=== PATIENT | male | born 1955 | race Caucasian/White ===

== ENCOUNTER 2019-07-22 14:50 | Emergency (ER) | payer MEDICARE, MEDICAID ==
[~2019-07-22] VITALS: Ht 167.6 cm; Wt 43.2 kg
[2019-07-22 15:12] VITALS: BP 151/71
== END 2019-07-22 16:44 | disposition home or self-care (01) ==
LOC: ER 14:51
DX: R62.50 Unspecified lack of expected normal physiological development in childhood (principal); G80.9 Cerebral palsy, unspecified
CPT/HCPCS: 99281